=== PATIENT | female | born 1955 | race Two or more races ===

== ENCOUNTER 2025-03-04 09:05 | Day surgery (SDC) | payer OTHER ==
[~2025-03-04] VITALS: Ht 160 cm; Wt 78.5 kg
[2025-03-04] VITALS (9 sets, daily range): BP systolic 125–137; BP diastolic 48–60; PULSE 51–70; RESP 11–17; TEMP 98.1; O2SAT 92–100
[~2025-03-04 09:05] MED LIST: ATOR40TA52 PO; CHOL20007 PO; DONETAB5 PO; FERR325T20 PO; FOLI-119 PO; GABA-1308 PO; HYDROmorphone HCL 2 MG/ML VL/or syr ONE; INSU100I28 IJ; INSU1INJ19 SC; ISOS1TAB28 PO; LOSA-534 PO; METH2.5T PO; METO25TA93 PO; PHENYLEPHRINE HCL 10 MG/ML VL ONE; PIO30T PO; PROPOFOL 10 MG/ML 20 ML IV ONE; SEMA2INJ3 SC; SUGAMMADEX 200mg/2ml Vial (100MG/ML) IV ONE; UPAD15TA PO; VIBE75TA PO; fentaNYL CITRATE 100 MCG/2 ML VL ONE
[2025-03-04] MEDS ORDERED: IODIXANOL 320MG/ML 100ML BTL IV ONE (09:49)
[2025-03-04] MEDS ORDERED: VERAPAMIL 2.5MG/ML INJ 2ML VIAL IV ONE (10:55)
[2025-03-04] MEDS ORDERED: ANGIOMAX 250 MG VIAL IV ONE (10:55)
[2025-03-04] MEDS ORDERED: LIDOCAINE 2%HCL (LOCAL ANESTH.) INJ 20ML MDV ONE (10:55)
[2025-03-04] MEDS ORDERED: SODIUM CHL 0.9% 0 ML ONE (10:55)
[2025-03-04] MEDS ORDERED: HEPARIN SODIUM (PORCINE) 5000 UNITS/ML 1ML VIAL ONE (10:55)
[2025-03-04] MEDS ORDERED: fentaNYL CITRATE 100 MCG/2 ML VL ONE (10:55)
[2025-03-04] MEDS ORDERED: MIDAZOLAM HCL 2MG/2ML 2ml VIAL (1mg/ml) ONE (10:55)
[2025-03-04] MEDS: ONDANSETRON HCL 4 MG/2 ML VIAL ONE ×2 (12:55→13:02)
[2025-03-04] MEDS ORDERED: ONDANSETRON HCL 4 MG/2 ML VIAL IV ONE (13:00)
--- NOTE | 2025-04-29 11:07 | DVHOP2 ---
Operative Report - 2 Report Details Date: 04/29/25 Preop Diagnosis: CAD Postop Diagnosis: s/p [facility], mild CAD Surgeon: Herbert Yoo MD Anesthesiologist: Conscious sedation. I personally ordered and evaluated the administration of medications for conscious sedation. I evaluated the patient for a proximally 15 minutes throughout the procedure. Anesthesia: Mac, Local Consent: The patient was informed of the risks and benefits of the procedure. These incl ude but are not limited to complications of anesthesia, postoperative infection, incomplete relief of symptoms, recurrence of symptoms, damage to blood vessels, nerves and tendons, deep venous thrombosis, pulmonary embolism and possible need for repeat surgery in the future. Findings: Mild CAD Indications for Surgery: Chest pain Name of Procedure Performed Left heart catheterization. Bilateral cine coronary angiography. Left ventriculography. Fractional flow reserve evaluation of the Left anterior descending coronary artery. Procedure Details Procedure Details: Prior local anesthesia with 2% lidocaine to the right wrist and full informed consent obtained the patient was prepped and draped in usual fashion followed by placement of a six [place] sheath into the radial artery through which a multipurpose catheter was used for cannulation of both right and left coronary ostia and a pigtail catheter was used for ventriculography without complications. Fractional flow reserve evaluation of the LAD was performed. Hemodynamics: Aortic blood pressure was 110/70 end-diastolic pressure was 12 without a gradient across the aortic valve on pullback. Coronary anatomy the RCA is a large vessel it is normal in its proximal portion the midportion has an eccentric 30-40% stenosis. There is a distal RCA prior to the origin of the PDA which has about a 50-60% stenosis. The PDA and posterolateral branches are normal. Left main is large and normal. Left anterior descending has what appears to be 40-50% mid stenosis. The distal segments are free of significant disease. The diagonals are normal. The circumflex has two obtuse marginals. The 2nd marginal has a 50-60% stenosis but free of critical disease. Fractional flow reserve evaluation of the LAD revealed an FFR of 0.87 consistent with noncritical disease. Ventriculography in the WAY projection shows an EF of 60%. Impression mild coronary artery disease as mentioned with normal end-diastolic pressures and normal ejection fraction Recommendations continue current medical therapy and risk factor modification to continue. Condition Good Disposition Home Date of Service: Apr 29, 2025 Billing Provider: HERBERT YOO Sr., MD Cardiology Common Codes: 70913-EEAUCSN INP/OBS CARE (High) Cardiology Procedure Codes: 77984-JJYZ HEART CATH W/INTRA INJ ( fractional flow reserve evaluation of the LAD.) HERBERT YOO Sr., MD Apr 29, 2025 11:07
== END 2025-03-04 14:31 | disposition home or self-care (01) ==
LOC: CATH 09:05
PROVIDERS: ATTEND Internal Medicine
DX: I25.10 Atherosclerotic heart disease of native coronary artery without angina pectoris (principal); R07.9 Chest pain, unspecified; Z79.4 Long term (current) use of insulin; Z79.84 Long term (current) use of oral hypoglycemic drugs; Z79.899 Other long term (current) drug therapy; Z88.6 Allergy status to analgesic agent
CPT/HCPCS: 0523T; 93460; C1769; C1887; C1894; J1171; J1644; J2250; J2371; J2405; J2704; J3010; Q9967; 99152; 99153